=== PATIENT | male | born 1990 | race Hispanic/Latino ===

== ENCOUNTER 2019-03-26 23:49 | Emergency (ER) | payer SELFPAY ==
[2019-03-27] MEDS ORDERED: MORPHINE 2 MG/ML SYR ONE (00:48)
[2019-03-27] MEDS ORDERED: NA CHLORIDE 0.9% 1,000 ML ONE (00:48)
[2019-03-27] MEDS ORDERED: ONDANSETRON 4 MG/2 ML VIAL ONE (00:48)
[2019-03-27] MEDS ORDERED: MORPHINE 4 MG/ML SYR ONE (01:55)
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
[2019-03-27] MEDS ORDERED: KETOROLAC 30 MG/ML INJ ONE (02:33)
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
== END 2019-03-27 02:48 | disposition home or self-care (01) ==
LOC: ER 23:49
DX: M79.631 Pain in right forearm (principal); M25.511 Pain in right shoulder; V47.5XXA Car driver injured in collision with fixed or stationary object in traffic accident, initial encounter
CPT/HCPCS: 70450; 71045; 71260; 72125; 74177; 90471; 96361; 96374; 96375; 99285; J2270; J2405; J7030; Q9967